=== PATIENT | female | born 1950 | race Caucasian/White ===

== ENCOUNTER 2016-06-08 18:46 | Emergency (ER) | payer OTHER ==
[2016-06-08 19:53] VITALS: BP 155/78
[2016-06-08] MEDS ORDERED: BSS OPTH.SOL* BTL ONE (20:43)
[2016-06-08] MEDS ORDERED: Fluorescein Sodium TOPICAL* 1 MG TEST ONE (20:43)
[2016-06-08] MEDS ORDERED: Tetracaine 0.5% OPTH.SOL 15ML* BTL ONE (20:44)
--- NOTE | 2016-06-08 21:06 | UC ---
Eye Complaint HPI - HPI Summary HPI Summary: left eye irritation since 1600 pm. Wears contacts, but has not worn them in several days. 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 Negative: Vision Impairment Right, Vision Impairment Left, Fever, Swelling - Risk Factors Penetrating Injury Risk Factor: Negative Globe Rupture Risk Factors: Negative Acute Glaucoma Risk Factors: Negative Optic Artery Occlusion Risk Factors: Negative - Allergies/Home Medications Allergies/Adverse Reactions: Allergies Allergy/AdvReac Type Severity Reaction Status Date / Time Morphine Allergy Unknown Shortness Verified 06/08/16 19:54 of Breath Sulfa Drugs Allergy Unknown Shortness Verified 06/08/16 19:54 of Breath PMH/Surg Hx/FS Hx/Imm Hx Previously Healthy: Yes Endocrine History Of: Reports: Thyroid Disease Denies: Diabetes Cardiovascular History Of: Reports: Hypertension Denies: Cardiac Disorders, Congestive Heart Failure Respiratory History Of: Denies: COPD, Asthma GI/ History Of: Reports: Kidney Stones - Ca oxalate 04/28 (left) Denies: Ulcer, Renal Disease Cancer History Of: Denies: Breast Cancer - Surgical History Surgical History: Yes Surgery Procedure, Year, and Place: , appey, 09/17 [facility] [place]- lap band, [facility] [place]- lap band repair, 04/28 (left) lithotripsy and (left) calculus proximal ureter, (left) hydronephosis, 06/26 [facility] [place]- (right) TKR - Family History Known Family History: Negative: Diabetes - Social History Occupation: Employed Full-time Lives: With Family Alcohol Use: Rare Substance Use Type: None Smoking Status (MU): Never Smoked Tobacco Household Exposure Type: Cigarettes Review of Systems Constitutional: Negative Skin: Negative Eyes: Drainage, Photophobia ENT: Negative Respiratory: Negative Cardiovascular: Negative Gastrointestinal: Negative Genitourinary: Negative Motor: Negative Neurovascular: Negative Musculoskeletal: Negative Neurological: Negative Psychological: Negative All Other Systems Reviewed And Are Negative: Yes Physical Exam Triage Information Reviewed: Yes Appearance: Well-Appearing, Well-Nourished, Pain Distress - mild Vital Signs: Initial Vital Signs Temp 97.4 F 06/08/16 19:48 Pulse 70 06/08/16 19:48 Resp 18 06/08/16 19:48 BP 155/78 06/08/16 19:48 Pulse Ox 99 06/08/16 19:48 Eyes: Positive: Conjunctiva Clear, Other: - fluorescein uptake horizontally from 2 oclock to 11 oclock and from 4 oclock to 8 oclock ENT Exam: Normal ENT: Positive: Normal ENT inspection Dental Exam: Normal Neck exam: Normal Neck: Positive: Supple, Nontender Respiratory Exam: Normal Respiratory: Positive: Chest non-tender, Lungs clear, Normal breath sounds, No respiratory distress, No accessory muscle use Cardiovascular Exam: Normal Cardiovascular: Positive: RRR, No Murmur Abdominal Exam: Normal Abdomen Description: Positive: Nontender, No Organomegaly Musculoskeletal Exam: Normal Neurological Exam: Normal Psychological Exam: Normal Skin Exam: Normal Eye Complaint Course/Dx - Differential Dx/Diagnosis Differential Diagnosis/HQI/PQRI: Corneal Abrasion, Glaucoma Provider Diagnoses: left corneal abrasion Discharge - Discharge Plan Condition: Stable Disposition: HOME Prescriptions: Tobramycin 0.3% OPHTH.MARIELLA* 1 drop LEFT EYE Q4H #1 btl Patient Education Materials: Corneal Abrasion (ED) Referrals: Kenya Honeycutt MD [Primary Care Provider] -
== END 2016-06-08 21:12 | disposition home or self-care (01) ==
LOC: UCEAST 18:46
DX: S05.02XA Injury of conjunctiva and corneal abrasion without foreign body, left eye, initial encounter (principal); X58.XXXA Exposure to other specified factors, initial encounter; Y93.9 Activity, unspecified; Y92.9 Unspecified place or not applicable; Z88.5 Allergy status to narcotic agent; Z88.2 Allergy status to sulfonamides; Z77.22 Contact with and (suspected) exposure to environmental tobacco smoke (acute) (chronic)
CPT/HCPCS: 99212; A9270-GY; G0463

== ENCOUNTER 2016-09-27 05:54 | Inpatient (IN) | payer MEDICARE, OTHER ==
--- NOTE | 2016-09-19 15:43 | HP ---
HISTORY AND PHYSICAL: DATE OF ADMISSION: 09/27/16 She will be entering the [facility] on 09/27/16 for a left total knee replacement. CHIEF COMPLAINT: Left knee pain. HISTORY OF PRESENT ILLNESS: The patient has had left knee problems over the last few years and she has severe arthritis of the left knee for which she is now recommended a left total knee replacement. PAST MEDICAL HISTORY: Allergies to SULFA and MORPHINE. She has SEASONAL HAY FEVER TYPE allergies. She had some bleeding after her right total knee replacement and required 2 units of packed red blood cells. No past cancers. No heart attack or chest pain. No pneumonia or bronchitis. She had a laparoscopic banding in [address] Mistry. She has a hernia from one of the laparoscopy sites that does get aggravated with pain with lifting and repeated heavy lifting. It is just to the right of her upper abdomen. PHYSICAL EXAMINATION GENERAL: She is well developed, not acutely distressed. Limping on the left. VITAL SIGNS: Weight 213 pounds. Temperature 97.5, blood pressure 138/82, pulse is 72, respirations are 14. HEENT: The head is NC/AT. LUNGS: Clear bilaterally. HEART: Regular S1, S2 normal. No murmurs or gallops. ABDOMEN: Round, soft, and nontender. There is no organomegaly. EXTREMITIES: The left knee shows tenderness of the medial joint line, nontender anteriorly, laterally, posteriorly. She can do a leg raise with the knee extended. Extension of the knee -2 degrees, flexion 115, MCL and LCL are stable with Estephania and posterior drawer normal. NEUROLOGIC: The cranial nerves are grossly intact. DIAGNOSTIC STUDIES/LAB DATA: X-rays, severe arthritis of the left knee in the medial compartment. IMPRESSION: Severe left knee arthritis. PLAN: Left total knee replacement. We discussed the goals, risks, and complications of surgical care in my office. [id number]/[facility] #: [id number] MARIAMA
[~2016-09-27 05:54] MED LIST: Buffered Lidocaine 0.9% SYRIN* 5 ML/SYR SYRINGE INTRADERM ONE
[2016-09-27] MEDS ORDERED: Famotidine IV* 10 MG/ML 2 ML (20 mg) ONE (05:55)
[2016-09-27] MEDS ORDERED: ceFAZolin 2 GM PREMIX(*) 2 GM/50 ML BAG IVPB ONE (05:55)
[2016-09-27] MEDS ORDERED: Buffered Lidocaine 0.9% SYRIN* 5 ML/SYR SYRINGE ONE (05:55)
[2016-09-27] MEDS ORDERED: Famotidine IV* 10 MG/ML 2 ML (20 mg) IV ONE (06:00)
[2016-09-27] MEDS ORDERED: fentaNYL* 50 MCG/ML 2 ML VIAL (100 MCG VIAL) ONE (07:26)
[2016-09-27] MEDS ORDERED: Midazolam* 1 MG/ML 5 ML VIAL (5 MG) ONE (07:26)
[2016-09-27] MEDS ORDERED: Morphine PF AMP (0.5MG/ML)* 5 MG/10 ML AMP ONE (07:26)
[2016-09-27] MEDS ORDERED: KETAMINE HCL* 50 MG/ML 10 ML VIAL ONE (07:26)
[2016-09-27] MEDS ORDERED: Midazolam* 1 MG/ML 2 ML VIAL (2 MG) ONE ×3 (07:56→09:39)
[2016-09-27] MEDS ORDERED: Glycopyrrolate IV* 0.2 MG/ML 1 ML VIAL ONE (08:17)
[2016-09-27] MEDS ORDERED: DiMENhydriNATE IV* 50 MG/ML VIAL ONE (08:32)
[2016-09-27] MEDS ORDERED: Dexamethasone IV* 4 MG/ML 1 ML (4 MG) ONE (08:32)
[2016-09-27] MEDS ORDERED: Ketorolac INJ* 30 MG/ML 1 ML VIAL ONE (08:32)
[2016-09-27] MEDS ORDERED: Propofol* 10 MG/ML 20 ML BTL IV PUSH ONE ×2 (08:32→09:30)
[2016-09-27] MEDS ORDERED: Ondansetron INJ* 2 MG/ML VIAL ONE (08:32)
[2016-09-27] MEDS ORDERED: Lidocaine 2% PF * 5 ML VIAL ONE (08:32)
[2016-09-27] MEDS ORDERED: DiMENhydriNATE IV* 50 MG/ML VIAL IV PUSH PRN (09:11)
[2016-09-27] MEDS ORDERED: oxyCODONE TAB* 5 MG TAB PO PRN (09:11)
[2016-09-27] MEDS ORDERED: fentaNYL* 50 MCG/ML 2 ML VIAL (100 MCG VIAL) IV PRN (09:11)
[2016-09-27] MEDS ORDERED: Gabapentin CAP(*) 300 MG PO ONE ×2 (09:14→20:00)
[2016-09-27] MEDS ORDERED: Bupivacaine 0.5% W/EPI SDV* 30 ML VIAL ONE (09:54)
[2016-09-27] MEDS ORDERED: Acetaminophen TAB* 325 MG PO SCH (10:00)
[2016-09-27] MEDS ORDERED: Gabapentin CAP(*) 300 MG ONE (10:35)
[2016-09-27] MEDS ORDERED: Acetaminophen TAB* 325 MG ONE (10:35)
[2016-09-27] MEDS ORDERED: oxyCODONE/Acetamin 5/325 MG* TAB PO PRN ×2 (10:43→12:00)
[2016-09-27] MEDS ORDERED: diPHENhydraMINE IV* 50 MG/ML 1 ml VIAL (BENADRYL) IV PRN (10:43)
[2016-09-27] MEDS ORDERED: Ondansetron INJ* 2 MG/ML VIAL IV PRN (10:43)
[2016-09-27] MEDS ORDERED: Acetaminophen TAB* 325 MG PO PRN (10:43)
[2016-09-27] MEDS ORDERED: HYDROmorphone* 1 MG/ML 1 ML SYR IV SLOW PU PRN (10:57)
--- NOTE | 2016-09-27 11:37 | RAD ---
Indication: Immediate postop exam following LEFT total knee replacement. Comparison: January 20, 2016 Technique: Portable AP and cross table lateral views LEFT knee. Report: Status post total knee replacement. Anterior cutaneous monica and surgical drain in place. Post-op fluid and gas is seen in the joint space and anterior subcutaneous tissues. Alignment is anatomic. No periprosthetic fracture evident. IMPRESSION: Unremarkable immediate postoperative appearance following LEFT knee replacement.
[2016-09-27] MEDS ORDERED: oxyCODONE TAB* 5 MG TAB ONE (11:46)
[2016-09-27] MEDS: Ibuprofen TAB* 600 MG PO SCH ×2 (15:19→20:46)
--- NOTE | 2016-09-27 15:36 | OP ---
CC: Dr. Honeycutt * DATE OF OPERATION: 09/27/16 - ROOM #[id number] DATE OF : 52. SURGICAL CARE: Left knee. SURGEON: Dr. Tobias. ASSISTANTS: Sin Valle, physician psychiatric technician assistant; and Rashmi Culp, body and frame technician. ANESTHESIOLOGIST: Dr. Caroline Segura. ANESTHESIA: Spinal and left adductor canal block. IV sedation was also utilized. PRE-OP DIAGNOSIS: Severe arthritis of the left knee with varus malalignment. POST-OP DIAGNOSIS: Severe arthritis of the left knee with varus malalignment. OPERATIVE PROCEDURE: Left total knee replacement. COMPLICATIONS: There were no complications. DRAINS: There were two blood collection drains left in the knee at the end of the case. ESTIMATED BLOOD LOSS: 200 mL. REPLACEMENT: Crystalloids, fluids. OPERATIVE INDICATIONS: Severe arthritis of the left knee with deformity. COMPONENTS UTILIZED: Dixie Persona knee was utilized, size 7 femur, narrow; size 32 patella; size E tibia, and a 10 articular surface. DESCRIPTION OF PROCEDURE: The patient was brought to the operating room and placed on the operating room table in a supine position. Following the administration of the canal block on the left leg and then the spinal anesthetic , Maravilla catheter was inserted. The left proximal thigh was wrapped with a tourniquet. The left leg was then give a preliminary chlorhexidine prep and then the leg was then prepped and draped formally from the tourniquet to the tips of the toes. After prepping, draping and sealing off, we did our universal protocol time-out confirming Lana Mcleodton and plan for a left total knee replacement. We all agreed and we proceeded. The surgical care was done without tourniquet until the clean up and cementing phase of the case. The surgical care was done with the knee acutely flexed with the left foot on a padded foot piece. The skin incision went from two fingerbreadths proximally to superior pole of the patella to the medial aspect of the tibial tubercle. Hemostasis was checked and achieved throughout the case utilizing electrocautery. The knee was entered. Medial parapatellar dividing the quad tendon at the junction of the rectus femoris and vastus medialis, going 4 cm proximal superior pole of the patella. The knee head clear goldish synovial fluid. On the tibia, the anterior medial soft tissues were divided down to the bone just medial to the tibial tubercle and then we stayed subperiosteally going around to the deep MCL and into the posterior medial corner of the knee. The patient had complete eburnation of the bone medial femoral condyle, medial tibial plateau with some scooping out large osteophytes on the intercondylar patella, medial and femoral condyle, medial tibial plateau. The patella was made so that it could be everted. The patella was completely eburnated for the most part. The infrapatellar fat pad was excised, the remainder of the medial meniscus was excised anteriorly. The distal anterior femur was exposed subperiosteal for referencing and measuring. Intracondylar osteophytes were removed. The ACL and PCL were uplifted from their femoral origins and the tibia was, so it could be subluxated forward from under the femur. The lateral meniscus was carefully excised and careful hemostasis was done at the periphery of the lateral meniscus for the lateral genicula. The proximal tibial cut was made first. Our goal here was to remove about centimeter on the lateral side and just a couple of millimeters on the medial side and have a tibial surface that would be perpendicular to the long axis of the tibia with slight posterior slope. The femoral intramedullary drill was utilized and the femoral distal femoral cut was applied on no.1 and 6 degrees of valgus, and the distal femoral cut was completed and the extension showed nice fit for a 10 mm block. The femur was measured for the size 7 and 4-in-1 cuts were completed for the size 7. We then finished removal of the posterior horn lateral meniscus, the PCL, posterior horn medial meniscus, carefully preserving the MCL and osteophyte on the posterior medial femoral condyle. At this point, we had nice ligamentous balance and 90 degrees of flexion with it and in extension. The femur was complete with the intracondylar cut off. We had suctioned the femoral canal when he first entered it to discourage embolization. The femoral canal was again cleaned x6 with pulse saline, suctioned empty, and then the bone plug was inserted. The tibia was completed for a size E and the knee was articulated and extended an E tibia 10 articular surface and a 7 femur with nice ligamentous balance in extension, full knee extension and nice ligamentous balance at 90 degrees of flexion. The patella was cut flat. A 32 was chosen. Three drill holes were made and these were undercut. A lateral release was not necessary. The leg was then exsanguinated. The tourniquet was elevated to 300. The knee was cleaned in extension with 2.5 L of pulse saline irrigation. Careful hemostasis again checked and achieved especially on the lateral genicula. The knee was then flexed, retractors were put into position, and all bony surfaces were cleaned with pulse saline. All surfaces were then dried. The cement was mixed. The components were cemented into position, the patella, followed by tibia, followed by femur. Each component was impacted. Excess cement was removed. The knee was articulated and extended during the final hardening and flexed again to check to see that there was any cement pouching out around the femoral component. At the end the tourniquet was deflated. Hemostasis was checked and achieved utilizing electrocautery. We infiltrated the pericapsular tissues with Marcaine 0.5% with epinephrine in the tissues medially and laterally. Two blood collection drains were brought out through superolateral suprapatellar pouch during the closure. The quad mechanism was reapproximated with interrupted #1 Polysorb in [id number] fashion down to the medial retinaculum. An 0 Polysorb was used distal to that and then deep and superficial subcu closed with 0 Polysorb and 3-0 Polysorb in the superficial subcu and monica on the skin. The knee was flexed and extended several times during closure. The dressing was done after the monica with Betadine-soaked Release, sterile gauze, sterile Webril, cryotherapy cuff, ABD pads, and 2 loosely applied 6-inch Tung bandages and the patient was returned to the recovery room in stable and satisfactory condition having tolerated the procedure very well. [id number]/[facility] #: [id number] MARIAMA
[2016-09-27] MEDS ORDERED: Acetaminophen TAB* 325 MG PO ONE (16:00)
[2016-09-27] MEDS: ceFAZolin VIAL(*) 1 GM in NS 0.9% 50 ML* 50 ML IVPB SCH (16:36)
[2016-09-27] MEDS: oxyCODONE TAB* 5 MG TAB PO PRN (19:54)
[2016-09-27] MEDS ORDERED: Lactated Ringers 500 ml BAG* 500 ML IV PRN (20:27)
[2016-09-27] MEDS: Docusate CAP* 100 MG PO SCH (20:46)
[2016-09-27] MEDS ORDERED: Lactated Ringers 500 ml BAG* 500 ML IV ONE (21:00)
[2016-09-27] MEDS: oxyCODONE/Acetamin 5/325 MG* TAB PO PRN (23:25)
[2016-09-28] MEDS: ceFAZolin VIAL(*) 1 GM in NS 0.9% 50 ML* 50 ML IVPB SCH ×2 (00:33→08:25)
[2016-09-28] MEDS: Ibuprofen TAB* 600 MG PO SCH ×2 (03:36→08:26)
[2016-09-28] MEDS: oxyCODONE/Acetamin 5/325 MG* TAB PO PRN ×3 (05:58→18:47)
[2016-09-28 06:15] LABS: Hematocrit 31 % (35-47); Hemoglobin 10.1 g/dl (12.0-16.0)
[2016-09-28 06:29] LABS: BUN/Creatinine Ratio 18.8 (8-20); Calcium 8.3 mg/dL (8.6-10.3); EGFR African American 120.1 (>60); EGFR Non-African American 93.4 (>60); Potassium 4.3 mmol/L (3.5-5.0)
[2016-09-28] MEDS: Lisinopril TAB* 10 MG PO SCH (08:25)
[2016-09-28] MEDS: Aspirin TAB* 325 MG PO SCH (08:26)
[2016-09-28] MEDS: Docusate CAP* 100 MG PO SCH ×2 (08:27→20:35)
[2016-09-28] MEDS: FLUoxetine CAP* 20 MG PO SCH (08:27)
[2016-09-28] MEDS: Levothyroxine TAB* 88 MCG TAB PO SCH (08:28)
[2016-09-28] MEDS: Omeprazole CAP* 20 MG PO SCH (08:28)
[2016-09-28] MEDS: oxyCODONE TAB* 5 MG TAB PO PRN ×2 (08:31→20:35)
[2016-09-29] MEDS: oxyCODONE/Acetamin 5/325 MG* TAB PO PRN ×5 (00:20→22:16)
[2016-09-29 06:14] LABS: Hematocrit 29 % (35-47); Hemoglobin 9.4 g/dl (12.0-16.0)
[2016-09-29] MEDS: Docusate CAP* 100 MG PO SCH ×2 (08:28→22:15)
[2016-09-29] MEDS: Aspirin TAB* 325 MG PO SCH (08:28)
[2016-09-29] MEDS: Omeprazole CAP* 20 MG PO SCH (08:28)
[2016-09-29] MEDS: Levothyroxine TAB* 88 MCG TAB PO SCH (08:29)
[2016-09-29] MEDS: FLUoxetine CAP* 20 MG PO SCH (08:29)
[2016-09-29] MEDS: Lisinopril TAB* 10 MG PO SCH (08:29)
[2016-09-29] MEDS ORDERED: Magnesium Hydroxide LIQ* 30 ML UDC PO PRN (09:04)
[2016-09-29] MEDS ORDERED: Polyethylene Glycol 3350* 17 GM PACKET PO PRN (09:05)
[2016-09-30] MEDS: oxyCODONE/Acetamin 5/325 MG* TAB PO PRN ×3 (04:11→12:21)
[2016-09-30 06:10] LABS: Hematocrit 28 % (35-47); Hemoglobin 9.3 g/dl (12.0-16.0)
[2016-09-30] MEDS: Omeprazole CAP* 20 MG PO SCH (08:24)
[2016-09-30] MEDS: Levothyroxine TAB* 88 MCG TAB PO SCH (08:25)
[2016-09-30] MEDS: Docusate CAP* 100 MG PO SCH (08:25)
[2016-09-30] MEDS: FLUoxetine CAP* 20 MG PO SCH (08:25)
[2016-09-30] MEDS: Lisinopril TAB* 10 MG PO SCH (08:25)
[2016-09-30] MEDS: Aspirin TAB* 325 MG PO SCH (08:25)
--- NOTE | 2016-09-30 08:52 | PN ---
Progress Note - Progress Note SOAP: Subjective: 65 y/o female s/p L TKA 09/27/[address] Tobias. VSS afebrile overnight. NO complaints, eager for D/C., had prior TKR, aware of post-op course. No BM currently, will try suppository at home. Objective: General- Well appearing, resting in bed comfortably, NAD AO MSK- + DF/PF b/l LE's, neg homans sign, sensation grossly intact L LE. PT 2+ b/ l, minimal edema LLE. L knee Incision C/I, minimal amount of bloody drainage seen at distal incision on gauze, redressed. ROM 0-30. Vital Signs Temp 98.8 F 09/30/16 08:08 Pulse 94 09/30/16 08:08 Resp 16 09/30/16 08:25 BP 116/71 09/30/16 08:08 Pulse Ox 97 09/30/16 08:08 Intake & Output 09/29/16 09/30/16 09/30/16 18:59 06:59 18:59 Intake Total 1400 1820 Output Total 850 650 Balance 550 1170 Intake: Oral 1400 1820 Output: Urine 850 650 Other: Estimated Void Medium # Bowel Movements 0 # Voids 4 Laboratory Results - last 24 hr 09/30/16 05:50 Hgb 9.3 L Hct 28 L Assessment: 65 y/o female s/p L TKA 09/27/[address] Tobias. Plan: - DVT prophy- ASA 325mg daily - Continue PT OT as shown, VNS to visit at home - D/C today, follow up with Dr. Tobias within 4-6 weeks - Meds called into [facility] including dulcolax supp. Active Medications Generic Name Dose Route Start Last Admin Trade Name Freq PRN Reason Stop Dose Admin Acetaminophen 650 mg 09/27/16 10:43 Tylenol Tab* PO Q4H PRN PAIN OR TEMPERATURE Aspirin 325 mg 09/28/16 09:00 09/30/16 08:25 Aspirin Tab* PO 325 mg DAILY RONIT Administration Diphenhydramine HCl 25 mg 09/27/16 10:43 Benadryl Iv* IV Q6H PRN itching Docusate Sodium 100 mg 09/27/16 21:00 09/30/16 08:25 Colace Cap* PO 100 mg BID RONIT Administration Fluoxetine HCl 20 mg 09/28/16 09:00 09/30/16 08:25 Prozac Cap* PO 20 mg DAILY RONIT Administration Hydromorphone HCl 1 mg 09/27/16 10:57 09/27/16 12:40 Dilaudid Iv* IV SLOW PU 1 mg Q4H PRN Administration PAIN Lactated Ringer's 1,000 mls @ 100 mls/hr 09/27/16 11:00 09/28/16 06:54 Lactated Ringers 1000 Ml Bag* IV 100 mls/hr PER RATE RONIT Administration Levothyroxine Sodium 88 mcg 09/28/16 09:00 09/30/16 08:25 Synthroid Tab* PO 88 mcg DAILY RONIT Administration Lisinopril 20 mg 09/28/16 09:00 09/30/16 08:25 Prinivil Tab* PO 20 mg DAILY RONIT Administration Magnesium Hydroxide 30 ml 09/29/16 09:04 09/29/16 11:09 Milk Of Magnesia Liq* PO 30 ml Q6H PRN Administration CONSTIPATION Omeprazole 20 mg 09/28/16 09:00 09/30/16 08:24 Prilosec Cap* PO 20 mg DAILY RONIT Administration Ondansetron HCl 4 mg 09/27/16 10:43 Zofran Inj* IV Q6H PRN nausea Oxycodone HCl 10 mg 09/27/16 10:43 09/28/16 20:35 Roxycodone Tab* PO 10 mg Q4H PRN Administration SEVERE PAIN Oxycodone/Acetaminophen 2 tab 09/27/16 10:43 09/30/16 08:25 Percocet 5/325 Tab* PO 2 tab Q3H PRN Administration PAIN - MODERATE Oxycodone/Acetaminophen 1 tab 09/27/16 10:43 Percocet 5/325 Tab* PO Q3H PRN PAIN - MODERATE Polyethylene Glycol/Electrolytes 17 gm 09/29/16 09:05 Miralax* PO DAILY PRN CONSTIPATION
[2016-09-30 12:07] VITALS: BP 114/61
== END 2016-09-30 12:35 | disposition home health service (06) | DRG 470 ==
LOC: AA 05:54 → SSU 12:12
PROVIDERS: ADMIT Orthopaedic Surgery; ATTEND Orthopaedic Surgery
PROC: 0SRD0J9 Replacement of Left Knee Joint with Synthetic Substitute, Cemented, Open Approach (ICD-10-PCS; principal; 2016-09-27 07:30)
DX: M17.12 Unilateral primary osteoarthritis, left knee (principal); J30.2 Other seasonal allergic rhinitis; M25.762 Osteophyte, left knee; Z96.651 Presence of right artificial knee joint; Z88.5 Allergy status to narcotic agent; Z88.2 Allergy status to sulfonamides
CPT/HCPCS: 36415; 62323; 80048; 85014; 85018; 88305; 88311; 94760; A9270-GY; C1776; J0690; J1100; J1170; J1240; J1885; J2250; J2405; J2704; J3010

== ENCOUNTER 2018-10-28 13:25 | Emergency (ER) | payer MEDICARE, OTHER ==
[2018-10-28 13:45] LABS: ABS Lymphocytes 0.8 10^3/ul (1.0-4.8); ABS Monocytes 0.5 10^3/ul (0-0.8); ABS Neutrophils 2.9 10^3/ul (1.5-7.7); Eosinophil % 0.6 %; Hematocrit 41 % (35-47); Hemoglobin 13.5 g/dL (12.0-16.0); Lymphocyte % 18.3 %; Mean Corpuscular HGB Conc 33 g/dL (31-36); Mean Corpuscular Hemoglobin 29 pg (27-31); Mean Corpuscular Volume 87 fL (80-97); Mean Platelet Volume 8.5 fL (7.4-10.4); Platelet Count 151 10^3/uL (150-450); Red Cell Distribution Width 16 % (10-15); White Blood Count 4.1 10^3/uL (3.5-10.8)
[2018-10-28 13:51] LABS: INR 1.02 (0.82-1.09)
[2018-10-28 14:01] LABS: Albumin 3.6 g/dL (3.2-5.2); Albumin/Globulin Ratio 1.2 (1-3); BUN/Creatinine Ratio 22.1 (8-20); Calcium 8.7 mg/dL (8.6-10.3); EGFR African American 90.5 (>60); EGFR Non-African American 74.8 (>60); Total Bilirubin 0.4 mg/dL (0.2-1.0); Total Protein 6.6 g/dL (6.4-8.9)
[2018-10-28] MEDS ORDERED: Levofloxacin TAB* 250 MG PO ONE (16:40)
[2018-10-28] MEDS ORDERED: Ondansetron ODT TAB* 4 MG PO ONE (16:42)
--- NOTE | 2018-10-28 16:47 | ED ---
HPI Chest Pain - HPI Summary HPI Summary: [facility] accompanied by her c/o sinus, upper back, and epigastric pain near to the chest. 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 The epigastric pain began 4-5 days COMMUNITY AFFAIRS DIRECTOR and is described as queasy and radiates from the mid-sternum into the central chest with palpitations. This morning after arriving at [facility] at 0900 she began to feel fluttery in the epigastric region with nausea, but these symptoms improved upon arriving and with rest. 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 The pain is located in her upper back between the shoulder blades, constant, and rated as a 2/10 in severity. The pt has been taking guaifenesin for sinus allergy symptoms, which has improved some of her pain symptoms. She reports headache and lower abd pain but denies any dehydration, vomiting, body shaking, or chills. She currently feels nauseous and pain in her upper back, but not the fluttery sensation. She also has history of lapband surgery (performed by Dr. Mistry 14 years ago), diverticulosis, diverticulitis (four episodes in the last 30 yrs since the initial diagnosis), left hydronephrosis, and hernia. She denies any prior gallbladder problems. Nonsmoker, occasional EtOH, and no substance use. Vital signs while in room: HR 82, BP 137/88, O2 Sat 96%. Home Medications Medication Instructions Recorded Confirmed Type Levothyroxine Sodium [Levoxyl] 88 mcg PO DAILY 05/17/12 09/27/16 History Lisinopril 20 mg PO DAILY 10/30/14 09/27/16 History FLUoxetine CAP* [Prozac CAP*] 20 mg PO DAILY 09/19/16 09/27/16 History Greens-Supplement 2 Scoops In Juice 1 teasp PO DAILY 09/19/16 09/27/16 History Omeprazole CAP (NF) [Prilosec CAP* 20 mg PO DAILY 09/19/16 09/27/16 History 20 MG] Acetaminophen TAB* [Tylenol TAB*] 650 mg PO Q4H PRN #0 tab 09/30/16 Rx Aspirin TAB* [Aspirin 325 MG TAB*] 325 mg PO DAILY tab 09/30/16 Rx Docusate CAP* [Colace Cap*] 100 mg PO BID cap 09/30/16 Rx oxyCODONE TAB* [Roxycodone TAB 5 5 mg PO Q4H PRN #0 tab MDD 12 09/30/16 Rx mg*] Levofloxacin TAB* [Levaquin TAB*] 750 mg PO DAILY #10 tab 10/28/18 Rx - History of Current Complaint Chief Complaint: EDChestPainROMI Time Seen by Provider: 10/28/18 16:04 Hx Obtained From: Patient, Family/Chief Business Development Officer - Onset/Duration: Started Hours Ago - "Fluttery" Epigastric region pain at 0900 , Started Days Ago - Upper back and sinus pain., Still Present Time of Onset: 09:00 Timing: Intermittent, Lasting Hours - epigastric pain, Lasting Days - sinus and back pains Initial Severity: Moderate Current Severity: Mild Pain Intensity: 2 Pain Scale Used: 0-10 Numeric Chest Pain Location: Mid Sternal, Upper Sternal Chest Pain Radiates: Yes Chest Pain Radiates To:: Epigastric Character: Fluttering, Other: - "Queasy" Aggravating Factor(s): Nothing Alleviating Factor(s): Rest Associated Signs and Symptoms: Positive: Chest Pain, Headaches, Nausea, Palpitations, Back Pain, Abdominal Pain - lower and epigastric, Sinus Discomfrot , Other: - NEGATIVE:. Negative: Chills, Vomiting - Additional Pertinent History Primary Care Physician: [id number] - Allergy/Home Medications Allergies/Adverse Reactions: Allergies Allergy/AdvReac Type Severity Reaction Status Date / Time morphine Allergy Shortness Verified 10/28/18 13:33 of Breath Sulfa (Sulfonamide Allergy Shortness Verified 10/28/18 13:33 Antibiotics) of Breath PMH/Surg Hx/FS Hx/Imm Hx Endocrine/Hematology History: Reports: Hx Thyroid Disease Denies: Hx Diabetes Cardiovascular History: Reports: Hx Hypertension Denies: Hx Congestive Heart Failure Respiratory History: Denies: Hx Asthma, Hx Chronic Obstructive Pulmonary Disease (COPD) GI History: Reports: Hx Gastroesophageal Reflux Disease, Other GI Disorders - s/ p lap band surgery 03 & repair 06 Denies: Hx Ulcer History: Reports: Hx Kidney Stones - Ca oxalate 04/28 (left) Denies: Hx Dialysis, Hx Renal Disease Musculoskeletal History: Reports: Hx Arthritis - osteo, bilateral knees, Hx Fibromyalgia, Other Musculoskeletal History - fibromyalgia Denies: Hx Rheumatoid Arthritis Sensory History: Reports: Hx Cataracts - tiny , no interventions needed, Hx Contacts or Glasses - both Denies: Hx Hearing Aid Opthamlomology History: Reports: Hx Cataracts - tiny , no interventions needed, Hx Contacts or Glasses - both Psychiatric History: Reports: Hx Anxiety - Cancer History Hx Chemotherapy: No Hx Radiation Therapy: No - Surgical History Surgical History: Yes Surgery Procedure, Year, and Place: , appey, 09/17 [facility] [place] [facility]- lap band, [facility] [place] repair, 04/28 (left) lithotripsy and (left) calculus proximal ureter, (left) hydronephosis, 06/26 [facility] [place] [facility]- (right) TKR Hx Anesthesia Reactions: No Infectious Disease History: No Infectious Disease History: Denies: Hx Hepatitis, Hx Human Immunodeficiency Virus (HIV), Traveled Outside the [place] in Last 30 Days - Family History Known Family History: Negative: Diabetes - Social History Alcohol Use: Occasionally Hx Substance Use: No Substance Use Type: Reports: None Hx Tobacco Use: No Smoking Status (MU): Never Smoked Tobacco Review of Systems Positive: Other - NEGATIVE: body shaking, dehydration. Negative: Chills Positive: Other - sinus pain in the ethmoid and maxillary regions Positive: Palpitations, Chest Pain - radiating from epigastric Positive: Abdominal Pain - epigastric, LLQ, "fluttering", Nausea. Negative: Vomiting Positive: Other - back pain between shoulder blades Positive: Headache All Other Systems Reviewed And Are Negative: Yes Physical Exam - Summary Physical Exam Summary: Appearance: Ill-appearing, moderate pain distress, well-nourished Skin: Warm, color reflects adequate perfusion, dry Head: Normal Head/Face inspection, atraumatic Eyes: Conjunctiva clear ENT: Normal inspection Neck: Supple, no nodes, no JVD Respiratory: Lungs clear, normal breath sounds, no respiratory distress Cardio: RRR, No murmur, pulses normal, brisk capillary refill Abdomen: Soft, nontender, Scars on abd consistent with gastric surgery, Port above umbilicus midway between the umbilicus and epigastric region with ability to feel band from lap band surgery Bowel sounds: Present Musculoskeletal: Strength Intact/ROM intact, no calf tenderness, no edema. Psychological: Normal Neuro: Alert, muscle tone normal, no focal deficit Triage Information Reviewed: Yes Vital Signs On Initial Exam: Initial Vitals Temp Pulse Resp BP Pulse Ox 98.7 F 84 18 138/78 98 10/28/18 13:31 10/28/18 13:31 10/28/18 13:31 10/28/18 13:31 10/28/18 13:31 Vital Signs Reviewed: Yes Diagnostics - Vital Signs Vital Signs Temp Pulse Resp BP Pulse Ox 10/28/18 16:28 14 143/93 10/28/18 16:00 76 13 96 10/28/18 15:58 83 18 137/88 95 10/28/18 15:30 80 97 10/28/18 15:28 79 139/95 97 10/28/18 13:31 98.7 F 84 18 138/78 98 - Laboratory Lab Results: Lab Results 10/28/18 10/28/18 10/28/18 Range/Units 13:36 13:36 13:36 WBC 4.1 (3.5-10.8) 10^3/uL RBC 4.70 (3.70-4.87) 10^6 /uL Hgb 13.5 (12.0-16.0) g/dL Hct 41 (35-47) % MCV 87 (80-97) fL MCH 29 (27-31) pg MCHC 33 (31-36) g/dL RDW 16 H (10-15) % Plt Count 151 (150-450) 10^3/uL MPV 8.5 (7.4-10.4) fL Neut % (Auto) 69.1 % Lymph % (Auto) 18.3 % [place] % (Auto) 11.2 % Eos % (Auto) 0.6 % Baso % (Auto) 0.8 % Absolute Neuts (auto) 2.9 (1.5-7.7) 10^3/ul Absolute Lymphs (auto) 0.8 L (1.0-4.8) 10^3/ul Absolute Monos (auto) 0.5 (0-0.8) 10^3/ul Absolute Eos (auto) 0.0 (0-0.6) 10^3/ul Absolute Basos (auto) 0.0 (0-0.2) 10^3/ul Absolute Nucleated RBC 0.0 10^3/ul Nucleated RBC % 0.0 INR (Anticoag Therapy) 1.02 (0.82-1.09) Sodium 138 (135-145) mmol/L Potassium 4.0 (3.5-5.0) mmol/L Chloride 105 (101-111) mmol/L Carbon Dioxide 27 (22-32) mmol/L Anion Gap 6 (2-11) mmol/L BUN 17 (6-24) mg/dL Creatinine 0.77 (0.51-0.95) mg/dL Est GFR ( Amer) 90.5 (>60) Est GFR (Non-Af Amer) 74.8 (>60) BUN/Creatinine Ratio 22.1 H (8-20) Glucose 104 H (70-100) mg/dL Calcium 8.7 (8.6-10.3) mg/dL Total Bilirubin 0.40 (0.2-1.0) mg/dL AST 19 (13-39) U/L ALT 12 (7-52) U/L Alkaline Phosphatase 61 (34-104) U/L Troponin I 0.00 (<0.04) ng/mL Total Protein 6.6 (6.4-8.9) g/dL Albumin 3.6 (3.2-5.2) g/dL Globulin 3.0 (2-4) g/dL Albumin/Globulin Ratio 1.2 (1-3) Result Diagrams: 10/28/18 13:36 10/28/18 13:36 Lab Statement: Any lab studies that have been ordered have been reviewed, and results considered in the medical decision making process. - CT Thoracic Spine CT CT Interpretation Completed By: Radiologist Summary of CT Findings: Impression: Osteopenia. Degenerative disc disease and osteoarthritis. No osseous neural foraminal narrowing or central canal stenosis. ED physician has reviewed this report. - Ultrasound Gallbladder US Ultrasound Interpretation Completed By: Radiologist Summary of Ultrasound Findings: Impression: 1. Cholelithiasis without sonographic features of acute cholecystitis. 2. Fatty infiltration of the liver. ED physician has reviewed this report. - EKG 1330 Cardiac Rate: NL - 85 BPM EKG Rhythm: Sinus Rhythm EKG Comparison: No Significant Change - No change from 02/21/2007. Summary of EKG Findings: An EKG at 1330 reveals nml AV/IV CT, nml QTc, and nml axis. No acute changes. ED MD has reviewed and interpreted this EKG. Re-Evaluation - Re-Evaluation First Eval Re-Evaluation Time: 17:55 Change: Improved Comment: Patient's symptoms have improved with relief of CP and epigastric pain. We discussed results of the US and second troponin, as well as discharge home. Chest Pain Course/Dx - Course Course Of Treatment: Pt medications reviewed this visit. Nurses' notes reviewed. Allergies noted. The patietnt is a 68 y/o F presenting to [facility] accompanied by with a chief complaint of sinus pain in the ethmoid and maxillary areas starting one week ago, epigastric pain starting 4-5 days ago with a "fluttering" and "queasy sensation this morning around 0900, and upper back pain between the shoulders start on 07. No previous gallbladder problems. Hx of lap band surgery, diverticulosis, diverticulitis. Upon physical exam, the patient exhibits scars on abd consistent with bariatric surgery, port above umbilicus midway between the umbilicus and epigastric region with ability to feel band from lap band surgery. Blood work reveals RDW of 16, abs lymphs of 0.8, BUN/creatinine ratio of 22.1, glucose of 104. First troponin is 0.00. Second troponin is 0.00. UA reveals trace ketones, 1+ blood, 3+ RBCs, and presence of squamous epithelial cells. EKG reveals NSR at 85 bpm with nml Av/IV CT, nml QTc, nml axis. Gallbladder US Impression: 1. Cholelithiasis without sonographic features of acute cholecystitis. 2. Fatty infiltration of the liver. T-Spine CT Impression: Osteopenia. Degenerative disc disease and osteoarthritis. No osseous neural foraminal narrowing or central canal stenosis. In the ED course, the patient was administered Zofran and Levaquin. Since the patient's symptoms have improved, and both troponins are negative without any other acute findings, the patient is able to be discharged home. I spoke with her concerning all results. She agrees with discharge home. She will follow up with PCP Dr. Honeycutt, and Dr. Mistry concerning findings, in 2 days. She is prescribed Levaquin. Patient agrees with this plan. She is diagnosed with sinusitis, epigastric pain, thoracic back pain, and s/p lap band surgery. - Diagnoses Provider Diagnoses: Sinusitis, Thoracic spine pain, Epigastric abdominal pain, Hx of laparoscopic gastric banding Discharge - Sign-Out/Discharge Documenting (check all that apply): Patient Departure - Patient will be discharged home. Patient Received Moderate/Deep Sedation with Procedure: No - Discharge Plan Condition: Stable Disposition: HOME Prescriptions: Levofloxacin TAB* [Levaquin TAB*] 750 mg PO DAILY #10 tab Patient Education Materials: Gallstones (ED), Sinusitis (ED), Back Pain (ED), Epigastric Pain (ED) Referrals: Balaji Mistry MD [Medical Doctor] - Kenya Honeycutt MD [Primary Care Provider] - 2 Days Additional Instructions: We gave you a copy of your CT thoracic spine and your ultrasound of your gallbladder. We gave you your first dose of Levaquin which will treat your sinusitis, and should help treat any early diverticulitis. We warned you about the side effects that constitute the black box warning for Levaquin. You may also discuss this with your pharmacist. Your EKG and your two troponins did not indicate any damage to your heart with this discomfort. Return to the ER if you have any new or worsening symptoms. - Billing Disposition and Condition Condition: STABLE Disposition: Home - Attestation Statements Document Initiated by Lillianibjenny: Yes Documenting Scribe: Nicole Cordon Provider For Whom Gordo is Documenting (Include Credential): Dr. Daly Segovia MD Scribe Attestation: Nicole Richards, scribed for Dr. Daly Segovia MD on 10/28/18 at 2323. Status of Scribe Document: Ready
[2018-10-28 17:43] LABS: Urine Appearance Clear; Urine Bacteria Absent (Absent); Urine Bilirubin Negative (Negative); Urine Blood 1+ (Negative); Urine Color Yellow; Urine Glucose Negative (Negative); Urine Ketones Trace (Negative); Urine Nitrite Negative (Negative); Urine Protein Negative (Negative); Urine Red Blood Cell 3+(>10/hpf) (Absent); Urine Specific Gravity 1.021 (1.010-1.030); Urine Squamous Epithelial Cell Present (Absent); Urine Urobilinogen Negative (Negative); Urine White Blood Cell Trace(0-5/hpf) (Absent)
[2018-10-28 18:27] VITALS: BP 154/89
[2018-10-28 18:39] LABS: C Reactive Protein 7.26 mg/L (<8.01)
== END 2018-10-28 18:26 | disposition home or self-care (01) ==
LOC: ED 13:25
DX: J32.9 Chronic sinusitis, unspecified (principal); M54.6 Pain in thoracic spine; R10.13 Epigastric pain; M54.9 Dorsalgia, unspecified; E07.9 Disorder of thyroid, unspecified; I10 Essential (primary) hypertension; K21.9 Gastro-esophageal reflux disease without esophagitis; Z87.442 Personal history of urinary calculi; R00.2 Palpitations; R51 Headache; Z98.84 Bariatric surgery status
CPT/HCPCS: 36415; 72128; 76705; 80053; 81003; 81015; 84484; 85025; 85610; 86140; 87086; 93005; 99283; A9270-GY

== ENCOUNTER 2019-03-15 11:18 | Emergency (ER) | payer MEDICARE, OTHER ==
[2019-03-15 12:45] VITALS: BP 173/98
--- NOTE | 2019-03-15 13:19 | UC ---
Respiratory Complaint HPI - HPI Summary HPI Summary: Ms. Ku got a flu shot several weeks ago and had 3 days of full-body aches. Subsequent to that she developed congestion and cough and after a few days went to see her PCP felt that it was viral. After continued on for a few days she contacted her PCP who prescribed Augmentin and a nasal spray. After about 3 or 4 days with no relief she again contacted her PCP who switched her to doxycycline. She has not had that for 7 days without relief. - History of Current Complaint Chief Complaint: UCGeneralIllness Stated Complaint: URI Time Seen by Provider: 03/15/19 12:56 Hx Obtained From: Patient Hx Last Menstrual Period: not applicable Onset/Duration: Gradual Onset Timing: Constant Severity Initially: Moderate Severity Currently: Severe Pain Intensity: 9 Character: Cough: Nonproductive Alleviating Factors: Other - Nasal spray helped some Associated Signs And Symptoms: Positive: Nasal Congestion, Sinus Discomfort - Allergies/Home Medications Allergies/Adverse Reactions: Allergies Allergy/AdvReac Type Severity Reaction Status Date / Time morphine Allergy Shortness Verified 03/15/19 12:32 of Breath Sulfa (Sulfonamide Allergy Shortness Verified 03/15/19 12:32 Antibiotics) of Breath Home Medications: Home Medications DOXYcycline CAP(*) [DOXYcycline 100MG CAP(*)] 100 mg PO BID 03/15/19 [History Confirmed 03/15/19] Duloxetine HCl [Cymbalta] 20 mg PO DAILY 03/15/19 [History Confirmed 03/15/19] PMH/Surg Hx/FS Hx/Imm Hx Endocrine History: Thyroid Disease GI/ History: Gastroesophageal Reflux - Surgical History Surgical History: Yes Surgery Procedure, Year, and Place: , appy, 09/17 [facility] [place] [facility] [place], 02/21 [facility] [place] [place], 04/28 (left) lithotripsy and (left) calculus proximal ureter, (left) hydronephosis, 06/26 [facility] [place] [place] [place]KR - Family History Known Family History: Positive: Hypertension Negative: Diabetes - Social History Alcohol Use: Occasionally Substance Use Type: None Smoking Status (MU): Never Smoked Tobacco Household Exposure Type: Cigarettes - Immunization History Most Recent Influenza Vaccination: none Most Recent Tetanus Shot: UTD Most Recent Pneumonia Vaccination: none Review of Systems All Other Systems Reviewed And Are Negative: Yes Constitutional: Positive: Negative Skin: Positive: Negative ENT: Positive: Nasal Discharge, Sinus Congestion, Sinus Pain/Tenderness Respiratory: Positive: Cough Cardiovascular: Positive: Negative Physical Exam - Summary Physical Exam Summary: She was nontoxic in appearance with stable vitals Triage Information Reviewed: Yes Appearance: Well-Appearing Vital Signs: Initial Vital Signs Temp 98.8 F 03/15/19 12:40 Pulse 71 03/15/19 12:40 Resp 19 03/15/19 12:40 BP 173/98 03/15/19 12:40 Pulse Ox 100 03/15/19 12:40 Vital Signs Reviewed: Yes ENT: Positive: Pharynx normal, Nasal congestion, Nasal drainage, TMs normal, Sinus tenderness - She does not transilluminate her frontal sinuses Neck: Positive: Nontender, No Lymphadenopathy Respiratory Exam: Normal Cardiovascular Exam: Normal Respiratory Course/Dx - Course Course Of Treatment: This seems to be a failed sinusitis treatment. I'm going to add decongestant and switch her to Cipro. - Differential Dx/Diagnosis Provider Diagnosis: Sinusitis Discharge ED - Sign-Out/Discharge Documenting (check all that apply): Patient Departure All imaging exams completed and their final reports reviewed: No Studies - Discharge Plan Condition: Stable Disposition: HOME Patient Education Materials: Sinusitis (ED) Referrals: Erlinda Zurita DO [Primary Care Provider] - - Billing Disposition and Condition Condition: STABLE Disposition: Home
== END 2019-03-15 13:30 | disposition home or self-care (01) ==
LOC: UCEAST 11:18
DX: J32.9 Chronic sinusitis, unspecified (principal); Z88.5 Allergy status to narcotic agent; Z88.2 Allergy status to sulfonamides
CPT/HCPCS: 99211; G0463